=== PATIENT | male | born 1960 | race Hispanic/Latino ===

== ENCOUNTER 2020-04-07 02:25 | Inpatient (IN) | payer MEDICAID, OTHER, SELFPAY ==
[2020-04-07] MEDS ORDERED: Albuterol Sulfate 2.5 mg/0.5 ml Neb ONE (02:44)
[2020-04-07 02:56] LABS: Hemoglobin 14.6 g/dL (14.0-18.0); Mean Corpuscular HGB CONC 32.9 g/dL (32.0-36.0); Mean Corpuscular Hemoglobin 29.3 pg (27.0-31.0); Mean Corpuscular Volume 89.1 fL (78.0-98.0); Platelet Count 221 thou/uL (130-400); RBC Distribution Width 12.9 % (11.5-14.5); Red Blood Cell (RBC) Count 4.99 mill/uL (4.70-6.10); White Blood Cell (WBC) Count 21.9 thou/uL (4.8-10.8)
[2020-04-07 03:02] LABS: Actual Bicarbonate (HCO3a) 13.8 mEq/L (22-28); Analyzer IN Cardio ER; Base Excess (BEa) -10.6 mEq/L (-2.0 to +3.0); CO2 Tension 27.6 mmHg (35.0-45.0); Calcium, Ionized (arterial) 1.02 mmol/L (1.12-1.30); Carboxyhemoglobin (COHb) 0.9 gm% (0.0-3.0); Hemoglobin (Hb) 14.7 g/dL (14.0-18.0); O2 Tension (PaO2), arterial 65.7 mmHg (> 80.0); Potassium - ABG Lab 3.39 mmol/L (3.70-5.30); pH, Arterial 7.32 (7.35-7.45)
[2020-04-07 03:05] LABS: Puncture Site RRA
[2020-04-07 03:11] LABS: Band 10 % (5-11); Lymphocytes 7 % (21-51); MDiff Complete? YES; Monocytes 8 % (0-10); Neutrophil 74 % (42-75); Reactive Lymphocytes 1 % (0-10)
[2020-04-07 03:12] LABS: ALT (SGPT) 45 U/L (8-55); AST (SGOT) 62 U/L (5-34); Albumin 3.6 g/dL (3.4-4.8); Alkaline Phosphatase 262 U/L (40-110); Anion Gap 30 mmol/L (10-20); BUN (Urea Nitrogen) 11 mg/dL (8.4-25.7); Bilirubin, Total 0.6 mg/dL (0.2-1.2); Calc. Creatinine Clearance 0 mL/min (70-130); Calcium 8.3 mg/dL (7.8-10.44); Carbon Dioxide 13 mmol/L (23-31); Chloride 92 mmol/L (98-107); Globulin 4.7 g/dL (2.4-3.5); Glucose 348 mg/dL (80-115); Potassium 3.2 mmol/L (3.5-5.1); Protein, Total 8.3 g/dL (5.8-8.1); Sodium 132 mmol/L (136-145)
[2020-04-07] MEDS ORDERED: Azithromycin 500 MG VIAL ONE (03:22)
[2020-04-07] MEDS ORDERED: cefTRIAXone\\ROCEPHIN 2 GM VIAL ONE (03:22)
[2020-04-07 03:41] LABS: CKMB 9.2 ng/mL (0-6.6)
[2020-04-07] MEDS ORDERED: Lorazepam 2 MG/ML VIAL ONE (04:53)
[2020-04-07] MEDS ORDERED: methylPREDNISolone Sod Succ/PF 125 MG/2 ML VIAL ONE (05:05)
[2020-04-07] MEDS ORDERED: Succinylcholine 200 MG/10 ml SYRINGE FS ONE ×2 (05:05→05:16)
[2020-04-07] MEDS ORDERED: Vecuronium 10 MG VIAL ONE ×3 (05:21→17:30)
[2020-04-07] MEDS ORDERED: Midazolam HCl 5 mg/ml Vial ONE (05:21)
[2020-04-07 05:54] LABS: Actual Bicarbonate (HCO3a) 16.4 mEq/L (22-28); Analyzer IN Cardio ER; Base Excess (BEa) -14.7 mEq/L (-2.0 to +3.0); Calcium, Ionized (arterial) 0.99 mmol/L (1.12-1.30); Carboxyhemoglobin (COHb) 0.5 gm% (0.0-3.0); Hemoglobin (Hb) 13.5 g/dL (14.0-18.0); Potassium - ABG Lab 4.44 mmol/L (3.70-5.30)
[2020-04-07 05:55] LABS: CO2 Tension 62.3 mmHg (35.0-45.0); pH, Arterial 7.04 (7.35-7.45)
[2020-04-07 05:56] LABS: O2 Tension (PaO2), arterial 31.9 mmHg (> 80.0); Puncture Site RRA
[2020-04-07 05:58] LABS: ALV-art Gradient 603.225 mmHg (0-20)
[2020-04-07] MEDS ORDERED: fentaNYL Citrate/PF 2,000 MCG in Sodium Chloride 0.9% 60 ML IV SCH (06:00)
[2020-04-07 06:44] LABS: Bilirubin Negative (Negative); Clarity Clear (Clear); Glucose, Urine (Dipstick) 500 mg/dL (Negative); Ketone, Urine Trace mg/dL (Negative); Leukocyte Negative Leu/uL (Negative); Nitrite Negative (Negative); Protein, Urine (Dipstick) 70 mg/dL (Neg-Trace); Squamous Epithelial 0-3 HPF (0-3); Urobilinogen Normal mg/dL (Less than 2); pH, Urine 5.5 (5.0-9.0)
[2020-04-07 06:46] LABS: Bacteria/HPF 1+ HPF (None Seen); Specific Gravity, Urine 1.053 (1.002-1.036)
[2020-04-07] MEDS ORDERED: hydrALAZINE 20 MG/ML VIAL SLOW IVP PRN (07:00)
[2020-04-07] MEDS ORDERED: Potassium Chloride 20 MEQ in Premix Bag 1 BAG IVPB SCH ×2 (07:00→08:00)
[2020-04-07] MEDS ORDERED: Sodium Chloride 0.9% 1,000 ML IV SCH (07:00)
[2020-04-07] MEDS ORDERED: Labetalol HCl 100 MG/20 ML VIAL SLOW IVP PRN (07:01)
[2020-04-07 07:08] LABS: RBC/HPF 0-3 HPF (0-3)
[2020-04-07 07:09] LABS: WBC/HPF 0-3 HPF (0-3)
[2020-04-07] MEDS ORDERED: Water For Inject, Bacteriostat 30 ML ONE (07:09)
[2020-04-07 07:10] LABS: Blood, Urine 1+ (Negative)
[2020-04-07] MEDS ORDERED: Ventilator Sedation Protocol 1 EACH FS SCH (07:15)
[2020-04-07] MEDS ORDERED: DISCONTINUE PREVIOUS NARCOTIC PAIN MEDICATIONS AND BENZODIAZEPINES FS SCH (07:45)
[2020-04-07] MEDS ORDERED: Propofol BOLUS 1,000 MG/100 ML VIAL IV PRN (07:45)
[2020-04-07] MEDS ORDERED: Fentanyl BOLUS 250 ML IVPB PRN (07:45)
[2020-04-07] MEDS ORDERED: Morphine 2 MG/ML VIAL SLOW IVP PRN (07:45)
[2020-04-07] MEDS ORDERED: Electrolyte Replacement Protocol 1 EACH IVPB PRN (08:01)
[2020-04-07] MEDS ORDERED: Potassium Chloride 20 MEQ/100 ML PREMIX BAG ONE (08:06)
[2020-04-07] MEDS ORDERED: Dextrose 50% Abboject 50 ML SYRINGE SLOW IVP PRN (08:08)
[2020-04-07] MEDS ORDERED: Insulin Regular 300 UNITS/3 ML VIAL SC PRN (08:08)
[2020-04-07] MEDS ORDERED: Dextrose 5% in Water 1,000 ML IV PRN (08:08)
[2020-04-07] MEDS ORDERED: cefTRIAXone\\ROCEPHIN 1 GM VIAL ONE (08:08)
[2020-04-07] MEDS ORDERED: Dexamethasone 10 MG/ML VIAL ONE (08:10)
[2020-04-07 08:12] LABS: Troponin I 0.286 ng/mL (< 0.028)
[2020-04-07 08:19] LABS: Lactic Acid 12.5 mmol/L (0.5-2.2)
[2020-04-07] MEDS ORDERED: Norepinephrine 8 MG/0.9% NS 250 ML ONE ×2 (08:46→15:12)
[2020-04-07] MEDS ORDERED: Acetaminophen 650 MG/20.3 ML UDCUP PO PRN (08:55)
[2020-04-07 08:57] LABS: Actual Bicarbonate (HCO3a) 12.1 mEq/L (22-28); Analyzer IN Cardio ER; Base Excess (BEa) -21.6 mEq/L (-2.0 to +3.0); Calcium, Ionized (arterial) 1.01 mmol/L (1.12-1.30); Carboxyhemoglobin (COHb) 0.5 gm% (0.0-3.0); Hemoglobin (Hb) 14.4 g/dL (14.0-18.0)
[2020-04-07] MEDS ORDERED: Dexamethasone 4 mg/ml Vial SLOW IVP SCH (09:00)
[2020-04-07] MEDS ORDERED: Dexamethasone 20 MG/5 ML VIAL SLOW IVP SCH (09:00)
[2020-04-07] MEDS ORDERED: Sodium Chloride 0.9% 500 ML IV SCH (09:00)
[2020-04-07 09:03] LABS: Anion Gap 26 mmol/L (10-20); BUN (Urea Nitrogen) 12 mg/dL (8.4-25.7); Calc. Creatinine Clearance 59 mL/min (70-130); Calcium 7.1 mg/dL (7.8-10.44); Carbon Dioxide 14 mmol/L (23-31); Chloride 97 mmol/L (98-107); Glucose 460 mg/dL (80-115); Potassium 4.6 mmol/L (3.5-5.1); Sodium 132 mmol/L (136-145)
[2020-04-07] MEDS ORDERED: Sodium Bicarb 50 MEQ/50 ML Abboject 8.4% SYRINGE IVP SCH (09:15)
[2020-04-07] MEDS ORDERED: Sodium Bicarb 50 MEQ/50 ML Abboject 8.4% SYRINGE ONE (09:16)
[2020-04-07 09:25] LABS: CO2 Tension 64.1 mmHg (35.0-45.0); Puncture Site RRA; pH, Arterial 6.89 (7.35-7.45)
[2020-04-07 09:26] LABS: ALV-art Gradient 541.875 mmHg (0-20)
[2020-04-07] MEDS ORDERED: Sodium Bicarbonate 150 MEQ in Dextrose 5% in Water 1,000 ML IV SCH (09:30)
[2020-04-07] MEDS ORDERED: HUMULIN R 100 UNITS in Sodium Chloride 0.9% 100 ML IVPB SCH (09:30)
[2020-04-07] MEDS: Dexamethasone 4 mg/ml Vial SLOW IVP SCH (09:43)
[2020-04-07] MEDS ORDERED: Enoxaparin Sodium 40 MG/0.4 ML SYRINGE ONE (09:47)
[2020-04-07] MEDS: Enoxaparin Sodium 40 MG/0.4 ML SYRINGE SC SCH ×2 (09:49→23:10)
[2020-04-07] MEDS ORDERED: Norepinephrine 8 MG/0.9% NS 250 ML IVPB SCH (10:15)
[2020-04-07] MEDS ORDERED: Iopamidol-370 76% 500 ML 1 ML ONE (10:41)
[2020-04-07 11:08] LABS: Creatinine, Urine 90.66 mg/dL (63-166)
[2020-04-07 14:36] LABS: Anion Gap 28 mmol/L (10-20); BUN (Urea Nitrogen) 14 mg/dL (8.4-25.7); Calc. Creatinine Clearance 45 mL/min (70-130); Calcium 6.7 mg/dL (7.8-10.44); Carbon Dioxide 16 mmol/L (23-31); Chloride 96 mmol/L (98-107); Glucose 455 mg/dL (80-115); Magnesium 2.5 mg/dL (1.6-2.6); Sodium 135 mmol/L (136-145)
[2020-04-07 14:44] LABS: Phosphorus 8.5 mg/dL (2.3-4.7)
[2020-04-07 14:50] LABS: Troponin I 0.612 ng/mL (< 0.028)
[2020-04-07] MEDS ORDERED: Norepinephrine 4 MG/4 ML VIAL ONE ×3 (15:09→19:12)
[2020-04-07 16:28] LABS: SARS-CoV-2 NAA Rapid Test DETECTED (NotDetected)
[2020-04-07] MEDS: Vecuronium 10 MG VIAL IVP PRN (17:32)
[2020-04-07] MEDS: Sodium Bicarbonate 150 MEQ in Dextrose 5% in Water 1,000 ML IV SCH (18:10)
[2020-04-07] MEDS: Zinc Sulfate 220 MG CAP PO SCH (18:17)
[2020-04-07] MEDS: Cholecalciferol (Vitamin D3) 400 UNITS TAB PO SCH (18:17)
[2020-04-07] MEDS: Ascorbic Acid 500 mg Chewable Tablet PO SCH (18:17)
[2020-04-07 19:19] LABS: Lactic Acid 9.8 mmol/L (0.5-2.2)
[2020-04-07 19:26] LABS: Anion Gap 26 mmol/L (10-20); BUN (Urea Nitrogen) 16 mg/dL (8.4-25.7); Calc. Creatinine Clearance 38 mL/min (70-130); Calcium 6.4 mg/dL (7.8-10.44); Carbon Dioxide 16 mmol/L (23-31); Chloride 98 mmol/L (98-107); Glucose 335 mg/dL (80-115); Potassium 5.7 mmol/L (3.5-5.1); Sodium 134 mmol/L (136-145)
[2020-04-07] MEDS ORDERED: Calcium Gluconate 9.2 MEQ in Sodium Chloride 0.9% 100 ML IVPB SCH (21:00)
[2020-04-07] MEDS ORDERED: Aspirin Chewable 81 MG TAB PER TUBE SCH (21:00)
[2020-04-08] MEDS: Vecuronium 10 MG VIAL IVP PRN ×2 (00:01→07:42)
[2020-04-08] MEDS: Famotidine/PF 20 mg/2ml Vial SLOW IVP SCH ×2 (00:20→07:42)
[2020-04-08] MEDS: Dexamethasone 4 mg/ml Vial SLOW IVP SCH ×3 (00:20→21:30)
[2020-04-08] MEDS: MEROPENEM 1 GM/50 ML 1 GM in Premix Bag 1 BAG IVPB SCH ×3 (00:21→23:57)
[2020-04-08 00:56] LABS: Anion Gap 17 mmol/L (10-20); BUN (Urea Nitrogen) 23 mg/dL (8.4-25.7); Calc. Creatinine Clearance 39 mL/min (70-130); Calcium 6.5 mg/dL (7.8-10.44); Carbon Dioxide 28 mmol/L (23-31); Chloride 99 mmol/L (98-107); Glucose 117 mg/dL (80-115); Potassium 4.7 mmol/L (3.5-5.1); Sodium 139 mmol/L (136-145)
[2020-04-08] MEDS ORDERED: Fentanyl CADD 100 ML ONE ×2 (05:50→18:47)
[2020-04-08 07:22] LABS: Lactic Acid 3.7 mmol/L (0.5-2.2)
[2020-04-08 07:23] LABS: Albumin 2.8 g/dL (3.4-4.8); Alkaline Phosphatase 216 U/L (40-110); Anion Gap 20 mmol/L (10-20); BUN (Urea Nitrogen) 26 mg/dL (8.4-25.7); Bilirubin, Direct 1.9 mg/dL (0.1-0.3); Bilirubin, Total 2.4 mg/dL (0.2-1.2); CK (CPK) 730 U/L (30-200); Calc. Creatinine Clearance 34 mL/min (70-130); Calcium 6.9 mg/dL (7.8-10.44); Carbon Dioxide 26 mmol/L (23-31); Chloride 97 mmol/L (98-107); Glucose 228 mg/dL (80-115); Magnesium 2.3 mg/dL (1.6-2.6); Phosphorus 6.4 mg/dL (2.3-4.7); Potassium 4.8 mmol/L (3.5-5.1); Protein, Total 5.9 g/dL (5.8-8.1); Sodium 138 mmol/L (136-145)
[2020-04-08 07:36] LABS: Actual Bicarbonate (HCO3a) 25.7 mEq/L (22-28); Base Excess (BEa) -0.3 mEq/L (-2.0 to +3.0); CO2 Tension 47.6 mmHg (35.0-45.0); Calcium, Ionized (arterial) 0.91 mmol/L (1.12-1.30); Carboxyhemoglobin (COHb) 0.9 gm% (0.0-3.0); Hemoglobin (Hb) 13.8 g/dL (14.0-18.0); Potassium - ABG Lab 4.71 mmol/L (3.70-5.30); pH, Arterial 7.35 (7.35-7.45)
[2020-04-08] MEDS: Sodium Bicarbonate 150 MEQ in Dextrose 5% in Water 1,000 ML IV SCH ×2 (07:39→07:41)
[2020-04-08] MEDS: Ascorbic Acid 500 mg Chewable Tablet PO SCH (07:41)
[2020-04-08] MEDS: Zinc Sulfate 220 MG CAP PO SCH (07:41)
[2020-04-08] MEDS: Cholecalciferol (Vitamin D3) 400 UNITS TAB PO SCH (07:41)
[2020-04-08 07:42] LABS: O2 Tension (PaO2), arterial 47.2 mmHg (> 80.0); Puncture Site LRA
[2020-04-08] MEDS: Enoxaparin Sodium 40 MG/0.4 ML SYRINGE SC SCH (07:42)
[2020-04-08] MEDS ORDERED: Sterile Water 10 ML ONE (07:49)
[2020-04-08 07:55] LABS: CKMB 20.3 ng/mL (0-6.6)
[2020-04-08] MEDS ORDERED: cefTRIAXone\\ROCEPHIN 1 GM in Sodium Chloride 0.9% 100 ML IVPB SCH (08:00)
[2020-04-08 08:03] LABS: Hemoglobin 13.2 g/dL (14.0-18.0); Mean Corpuscular HGB CONC 32.1 g/dL (32.0-36.0); Mean Corpuscular Hemoglobin 28.5 pg (27.0-31.0); Mean Corpuscular Volume 88.9 fL (78.0-98.0); Mean Platelet Volume 14.2 fL (7.4-10.4); Platelet Count 33 thou/uL (130-400); RBC Distribution Width 13.7 % (11.5-14.5); Red Blood Cell (RBC) Count 4.64 mill/uL (4.70-6.10); White Blood Cell (WBC) Count 16.3 thou/uL (4.8-10.8)
[2020-04-08 08:08] LABS: #Lymphocytes 1.5 thou/uL (1.20-3.40); #Monocytes 1.1 thou/uL (0.11-0.59); #Neutrophils 14.1 thou/uL (1.40-6.50); %Basophils 0.1 % (0.0-1.0); %Eosinophils 0.2 % (0.0-10.0); %Lymphocytes 8.7 % (21.0-51.0); %Monocytes 6.4 % (0.0-10.0); %Neutrophils 84.5 % (42.0-75.0); Band 16 % (5-11); Bite Cells SLIGHT = 2-5 cells (100X) (0-1/hpf); Lymphocytes 5 % (21-51); MDiff Complete? YES; Monocytes 3 % (0-10); Neutrophil 74 % (42-75); Nucleated RBC 1 % (0); Platelet Morphology Comment Appears Decreased; Polychromasia SLIGHT = 2-3 cells (100X) (0-2/hpf); Reactive Lymphocytes 2 % (0-10); Schistocytes MODERATE= 6-15 cells (100X) (0-1/hpf)
[2020-04-08 08:31] LABS: Platelet Count 30 thou/uL (130-400)
[2020-04-08 08:40] LABS: Fibrinogen 172 mg/dL (253-463)
[2020-04-08 08:41] LABS: PTT 32.7 sec (22.9-36.1); Prothrombin Time 22.7 sec (12.0-14.7)
[2020-04-08] MEDS ORDERED: Ivermectin 3 MG TAB PO SCH (08:45)
[2020-04-08] MEDS ORDERED: Aspirin Chewable 81 MG TAB PER TUBE SCH (09:00)
[2020-04-08] MEDS ORDERED: Azithromycin 500 MG in Sodium Chloride 0.9% 250 ML 250 ML IVPB SCH (09:00)
[2020-04-08 09:07] LABS: D-Dimer Test Greater than 20.00 *mcg/mL (0.27-0.43)
[2020-04-08 10:02] LABS: ALT (SGPT) 4997 U/L (8-55)
[2020-04-08 10:20] LABS: AST (SGOT) Greater than 3500 U/L (5-34)
[2020-04-08] MEDS ORDERED: FLU VACC QS2020-21(6MOS UP)/PF 60 MCG/0.5 ML SYRINGE IM ONE (11:30)
[2020-04-08 12:09] LABS: FSP-Qualitative ABNORMAL (Normal); FSP-Semiquantitative >320 mcg/mL (Less than 5)
[2020-04-08] MEDS: Norepinephrine 8 MG/0.9% NS 250 ML IVPB PRN (14:18)
[2020-04-08 15:43] LABS: Fibrinogen 211 mg/dL (253-463); PTT 29.1 sec (22.9-36.1)
[2020-04-08 15:44] LABS: INR-International Normal Ratio 1.8; Prothrombin Time 21.3 sec (12.0-14.7)
[2020-04-08 15:55] LABS: Anion Gap 19 mmol/L (10-20); BUN (Urea Nitrogen) 36 mg/dL (8.4-25.7); Calc. Creatinine Clearance 25 mL/min (70-130); Calcium 6.4 mg/dL (7.8-10.44); Carbon Dioxide 28 mmol/L (23-31); Chloride 96 mmol/L (98-107); Glucose 180 mg/dL (80-115); Potassium 4.1 mmol/L (3.5-5.1); Sodium 139 mmol/L (136-145)
[2020-04-08 16:00] LABS: Band 32 % (5-11); Hemoglobin 13.3 g/dL (14.0-18.0); Lymphocytes 4 % (21-51); MDiff Complete? YES; Mean Corpuscular Hemoglobin 29.3 pg (27.0-31.0); Mean Corpuscular Volume 88.8 fL (78.0-98.0); Mean Platelet Volume 16.1 fL (7.4-10.4); Monocytes 3 % (0-10); Neutrophil 57 % (42-75); Nucleated RBC 6 % (0); Platelet Count 32 thou/uL (130-400); Platelet Morphology Comment Appears Decreased; Polychromasia MODERATE = 3-4 cells (100X) (0-2/hpf); RBC Distribution Width 13.6 % (11.5-14.5); Reactive Lymphocytes 4 % (0-10); Red Blood Cell (RBC) Count 4.54 mill/uL (4.70-6.10); Schistocytes SLIGHT = 2-5 cells (100X) (0-1/hpf); Target Cells SLIGHT = 2-5 cells (100X) (0-1/hpf); Tear Drops SLIGHT = 2-5 cells (100X) (0-1/hpf); White Blood Cell (WBC) Count 16.5 thou/uL (4.8-10.8)
[2020-04-08] MEDS ORDERED: Calcium Chloride 13.6 MEQ in Sodium Chloride 0.9% 100 ML IVPB SCH (16:00)
[2020-04-08] MEDS: Lorazepam 2 MG/ML VIAL SLOW IVP PRN ×2 (16:01→19:23)
[2020-04-08 16:07] LABS: D-Dimer Test Greater than 20.00 *mcg/mL (0.27-0.43)
[2020-04-08] MEDS ORDERED: Ergocalciferol 1.25 MG(50,000 UNITS) CAP PO SCH (16:15)
[2020-04-08 16:31] LABS: FSP-Qualitative ABNORMAL (Normal); FSP-Semiquantitative >320 mcg/mL (Less than 5)
[2020-04-08 16:32] LABS: Platelet Count 32 thou/uL (130-400)
[2020-04-08] MEDS ORDERED: Insulin Regular 300 UNITS/3 ML VIAL SC PRN ×2 (17:20)
[2020-04-08] MEDS: Mometasone 200 MCG/Formoterol 5 MCG 120 PUFF INHALER INH SCH (18:37)
[2020-04-08] MEDS: Propofol 1,000 MG/100 ML VIAL IV PRN (19:22)
[2020-04-08] MEDS: Insulin Regular 300 UNITS/3 ML VIAL SC PRN (21:30)
[2020-04-09] MEDS: Vecuronium 10 MG VIAL IVP PRN ×2 (00:02→16:00)
[2020-04-09] MEDS: Insulin Regular 300 UNITS/3 ML VIAL SC PRN ×6 (00:25→20:25)
[2020-04-09] MEDS: Lorazepam 2 MG/ML VIAL SLOW IVP PRN ×3 (01:11→16:00)
[2020-04-09] MEDS: Sodium Bicarbonate 50 MEQ in Sodium Chloride 0.45% 1,000 ML IV SCH ×2 (02:08→18:56)
[2020-04-09] MEDS: Propofol 1,000 MG/100 ML VIAL IV PRN (03:17)
[2020-04-09 03:58] LABS: Fibrinogen 214 mg/dL (253-463)
[2020-04-09 03:59] LABS: INR-International Normal Ratio 1.6; PTT 28.1 sec (22.9-36.1); Prothrombin Time 19.7 sec (12.0-14.7)
[2020-04-09 04:07] LABS: FSP-Qualitative ABNORMAL (Normal)
[2020-04-09 04:08] LABS: FSP-Semiquantitative >320 mcg/mL (Less than 5)
[2020-04-09 04:17] LABS: ALT (SGPT) 3072 U/L (8-55); AST (SGOT) 2924 U/L (5-34); Albumin 2.4 g/dL (3.4-4.8); Alkaline Phosphatase 240 U/L (40-110); Anion Gap 24 mmol/L (10-20); BUN (Urea Nitrogen) 52 mg/dL (8.4-25.7); Bilirubin, Total 2.5 mg/dL (0.2-1.2); Calc. Creatinine Clearance 20 mL/min (70-130); Calcium 6.4 mg/dL (7.8-10.44); Carbon Dioxide 24 mmol/L (23-31); Chloride 94 mmol/L (98-107); Glucose 213 mg/dL (80-115); Potassium 4.7 mmol/L (3.5-5.1); Protein, Total 5.4 g/dL (5.8-8.1); Sodium 137 mmol/L (136-145)
[2020-04-09 04:26] LABS: D-Dimer Test Greater than 20.00 *mcg/mL (0.27-0.43)
[2020-04-09 04:28] LABS: Magnesium 2.2 mg/dL (1.6-2.6); Phosphorus 8.6 mg/dL (2.3-4.7)
[2020-04-09 04:29] LABS: Hemoglobin 12.8 g/dL (14.0-18.0); Mean Corpuscular HGB CONC 33.2 g/dL (32.0-36.0); Mean Corpuscular Hemoglobin 28.9 pg (27.0-31.0); Mean Corpuscular Volume 87.1 fL (78.0-98.0); RBC Distribution Width 13.6 % (11.5-14.5); Red Blood Cell (RBC) Count 4.43 mill/uL (4.70-6.10)
[2020-04-09 04:52] LABS: Platelet Count 37 thou/uL (130-400)
[2020-04-09 05:05] LABS: Band 16 % (5-11); Lymphocytes 2 % (21-51); MDiff Complete? YES; Mean Platelet Volume 13.4 fL (7.4-10.4); Monocytes 5 % (0-10); Neutrophil 77 % (42-75); Nucleated RBC 6 % (0); Platelet Count 37 thou/uL (130-400); Platelet Morphology Comment Appears Decreased; Schistocytes SLIGHT = 2-5 cells (100X) (0-1/hpf); White Blood Cell (WBC) Count 17.2 thou/uL (4.8-10.8)
[2020-04-09] MEDS ORDERED: Fentanyl CADD 100 ML ONE ×2 (07:18→20:38)
[2020-04-09] MEDS: Mometasone 200 MCG/Formoterol 5 MCG 120 PUFF INHALER INH SCH ×2 (07:27→18:26)
[2020-04-09] MEDS: Dexamethasone 4 mg/ml Vial SLOW IVP SCH ×2 (09:44→20:26)
[2020-04-09] MEDS: Cholecalciferol (Vitamin D3) 400 UNITS TAB PO SCH (09:44)
[2020-04-09] MEDS: Famotidine/PF 20 mg/2ml Vial SLOW IVP SCH (09:44)
[2020-04-09] MEDS: Zinc Sulfate 220 MG CAP PO SCH (09:45)
[2020-04-09] MEDS: Ascorbic Acid 500 mg Chewable Tablet PO SCH (09:45)
[2020-04-09 10:27] LABS: Reticulocyte Count 1.1 % (0.5-1.5)
[2020-04-09] MEDS: MEROPENEM 1 GM/50 ML 1 GM in Premix Bag 1 BAG IVPB SCH (13:18)
[2020-04-09 15:27] LABS: Hemoglobin 12.9 g/dL (14.0-18.0); Platelet Count 47 thou/uL (130-400)
[2020-04-09] MEDS ORDERED: Sterile Water 10 ML ONE (15:40)
[2020-04-09 15:45] LABS: Anion Gap 25 mmol/L (10-20); BUN (Urea Nitrogen) 68 mg/dL (8.4-25.7); Calc. Creatinine Clearance 17 mL/min (70-130); Carbon Dioxide 24 mmol/L (23-31); Chloride 92 mmol/L (98-107); Glucose 250 mg/dL (80-115); Potassium 4.6 mmol/L (3.5-5.1); Sodium 136 mmol/L (136-145)
[2020-04-09 15:53] LABS: Calcium 5.7 mg/dL (7.8-10.44)
[2020-04-09] MEDS ORDERED: Calcium Chloride 13.6 MEQ in Sodium Chloride 0.9% 100 ML IVPB SCH (17:00)
[2020-04-09] MEDS: Norepinephrine 8 MG/0.9% NS 250 ML IVPB PRN (18:38)
[2020-04-10] MEDS: MEROPENEM 1 GM/50 ML 1 GM in Premix Bag 1 BAG IVPB SCH ×2 (00:23→10:56)
[2020-04-10] MEDS: Insulin Regular 300 UNITS/3 ML VIAL SC PRN ×6 (00:28→20:46)
[2020-04-10] MEDS: Propofol 1,000 MG/100 ML VIAL IV PRN ×3 (02:15→21:31)
[2020-04-10 04:56] LABS: Hemoglobin 12.4 g/dL (14.0-18.0); Mean Corpuscular HGB CONC 35.3 g/dL (32.0-36.0); Mean Corpuscular Hemoglobin 30.7 pg (27.0-31.0); Mean Corpuscular Volume 87.2 fL (78.0-98.0); Mean Platelet Volume 11.8 fL (7.4-10.4); Platelet Count 45 thou/uL (130-400); Red Blood Cell (RBC) Count 4.02 mill/uL (4.70-6.10); White Blood Cell (WBC) Count 18.3 thou/uL (4.8-10.8)
[2020-04-10 04:57] LABS: Band 13 % (5-11); Lymphocytes 6 % (21-51); MDiff Complete? YES; Metamyelocyte 2 % (0-0); Monocytes 7 % (0-10); Neutrophil 72 % (42-75); Nucleated RBC 13 % (0); Target Cells SLIGHT = 2-5 cells (100X) (0-1/hpf)
[2020-04-10 04:59] LABS: Anion Gap 23 mmol/L (10-20); BUN (Urea Nitrogen) 82 mg/dL (8.4-25.7); Calc. Creatinine Clearance 15 mL/min (70-130); Carbon Dioxide 25 mmol/L (23-31); Chloride 93 mmol/L (98-107); Glucose 220 mg/dL (80-115); Potassium 4.2 mmol/L (3.5-5.1); Sodium 137 mmol/L (136-145)
[2020-04-10 05:03] LABS: Lactic Acid 2.5 mmol/L (0.5-2.2)
[2020-04-10 05:04] LABS: Calcium 5.6 mg/dL (7.8-10.44)
[2020-04-10 05:11] LABS: ALT (SGPT) 1999 U/L (8-55); AST (SGOT) 801 U/L (5-34); Albumin 2.1 g/dL (3.4-4.8); Alkaline Phosphatase 245 U/L (40-110); Bilirubin, Direct 2.8 mg/dL (0.1-0.3); Bilirubin, Total 3.3 mg/dL (0.2-1.2)
[2020-04-10 05:23] LABS: Fibrinogen 192 mg/dL (253-463); Prothrombin Time 23.2 sec (12.0-14.7)
[2020-04-10 05:40] LABS: D-Dimer Test Greater than 20.00 *mcg/mL (0.27-0.43)
[2020-04-10] MEDS ORDERED: Calcium Gluc 4.6 MEQ/10 ML (100 MG/ML) SLOW IVP SCH (06:00)
[2020-04-10 06:09] LABS: FSP-Qualitative ABNORMAL (Normal); FSP-Semiquantitative >320 mcg/mL (Less than 5)
[2020-04-10 06:10] LABS: Platelet Count 45 thou/uL (130-400)
[2020-04-10] MEDS ORDERED: Calcium Chloride 13.6 MEQ in Sodium Chloride 0.9% 100 ML IVPB SCH (07:00)
[2020-04-10] MEDS: Mometasone 200 MCG/Formoterol 5 MCG 120 PUFF INHALER INH SCH ×2 (07:12→18:32)
[2020-04-10] MEDS: Sodium Bicarbonate 50 MEQ in Sodium Chloride 0.45% 1,000 ML IV SCH ×2 (07:59→21:32)
[2020-04-10] MEDS: Ascorbic Acid 500 mg Chewable Tablet PO SCH (08:03)
[2020-04-10] MEDS: Dexamethasone 4 mg/ml Vial SLOW IVP SCH ×2 (08:03→20:45)
[2020-04-10] MEDS: Zinc Sulfate 220 MG CAP PO SCH (08:03)
[2020-04-10] MEDS: Famotidine/PF 20 mg/2ml Vial SLOW IVP SCH (08:03)
[2020-04-10] MEDS: Cholecalciferol (Vitamin D3) 400 UNITS TAB PO SCH (08:03)
[2020-04-10] MEDS ORDERED: Calcium Chloride 1 GM/10 ML Abboject SYRINGE IVP SCH (09:00)
[2020-04-10] MEDS ORDERED: Heparin 10,000 UNITS/ 10 ML VIAL ONE (09:46)
[2020-04-10] MEDS: Meropenem 500 MG in Sodium Chloride 0.9% 100 ML IVPB SCH ×2 (12:11→23:26)
[2020-04-10 12:36] LABS: HBSAB Concentration Less than 8.00 mIU/mL; HBSAg Index 0.17 S/CO (0-0.99); Hep B Core Total Ab Non-Reactive (NonReactive); Hep B Surf AB Non-Reactive (NonReactive); Hep B Surf Ag Non-Reactive S/CO (NonReactive); Hep C IgG Ab Non-Reactive (NonReactive); Hep C Index 0.15 S/CO (0-0.79)
[2020-04-10] MEDS: Vecuronium 10 MG VIAL IVP PRN ×2 (13:00→20:07)
[2020-04-10] MEDS: Lorazepam 2 MG/ML VIAL SLOW IVP PRN ×2 (13:00→23:26)
[2020-04-10 15:25] LABS: Hep B Surf Ag Non-Reactive S/CO (NonReactive)
[2020-04-10] MEDS ORDERED: Fentanyl CADD 100 ML ONE (16:42)
[2020-04-11] MEDS: Insulin Regular 300 UNITS/3 ML VIAL SC PRN ×3 (00:19→20:05)
[2020-04-11 04:16] LABS: Fibrinogen 200 mg/dL (253-463); INR-International Normal Ratio 2.7; PTT 33.3 sec (22.9-36.1); Prothrombin Time 28.9 sec (12.0-14.7)
[2020-04-11 04:31] LABS: Anion Gap 23 mmol/L (10-20); BUN (Urea Nitrogen) 86 mg/dL (8.4-25.7); Calc. Creatinine Clearance 15 mL/min (70-130); Carbon Dioxide 25 mmol/L (23-31); Chloride 92 mmol/L (98-107); Glucose 216 mg/dL (80-115); Potassium 4.6 mmol/L (3.5-5.1); Sodium 135 mmol/L (136-145)
[2020-04-11] MEDS: Lorazepam 2 MG/ML VIAL SLOW IVP PRN ×3 (04:34→22:06)
[2020-04-11 04:37] LABS: ALT (SGPT) 1559 U/L (8-55); AST (SGOT) 315 U/L (5-34); Albumin 2.5 g/dL (3.4-4.8); Alkaline Phosphatase 286 U/L (40-110); Bilirubin, Direct 4.6 mg/dL (0.1-0.3); Bilirubin, Total 5.8 mg/dL (0.2-1.2); Calcium 5.4 mg/dL (7.8-10.44); D-Dimer Test Greater than 20.00 *mcg/mL (0.27-0.43); Protein, Total 5.9 g/dL (5.8-8.1)
[2020-04-11 04:58] LABS: Hemoglobin 13.4 g/dL (14.0-18.0); Lymphocytes 11 % (21-51); MDiff Complete? YES; Mean Corpuscular HGB CONC 33.9 g/dL (32.0-36.0); Mean Corpuscular Hemoglobin 29.2 pg (27.0-31.0); Mean Corpuscular Volume 86.1 fL (78.0-98.0); Mean Platelet Volume 13.8 fL (7.4-10.4); Monocytes 2 % (0-10); Myelocyte 1 % (0-0); Neutrophil 86 % (42-75); Nucleated RBC 7 % (0); Platelet Count 60 thou/uL (130-400); Platelet Morphology Comment Appears Decreased; RBC Distribution Width 13.3 % (11.5-14.5); Red Blood Cell (RBC) Count 4.58 mill/uL (4.70-6.10); White Blood Cell (WBC) Count 19.6 thou/uL (4.8-10.8)
[2020-04-11 05:26] LABS: FSP-Qualitative ABNORMAL (Normal); FSP-Semiquantitative >320 mcg/mL (Less than 5)
[2020-04-11] MEDS: Propofol 1,000 MG/100 ML VIAL IV PRN ×3 (05:29→20:49)
[2020-04-11 05:35] LABS: Platelet Count 60 thou/uL (130-400)
[2020-04-11] MEDS: Mometasone 200 MCG/Formoterol 5 MCG 120 PUFF INHALER INH SCH ×2 (06:38→18:05)
[2020-04-11] MEDS ORDERED: SODIUM CHLORIDE 0.9% IVPB SCH (07:00)
[2020-04-11] MEDS ORDERED: CALCIUM CHLORIDE IVPB SCH (07:00)
[2020-04-11] MEDS: Cholecalciferol (Vitamin D3) 400 UNITS TAB PO SCH (08:24)
[2020-04-11] MEDS: Dexamethasone 4 mg/ml Vial SLOW IVP SCH ×2 (08:24→20:22)
[2020-04-11] MEDS: Ascorbic Acid 500 mg Chewable Tablet PO SCH (08:25)
[2020-04-11] MEDS: Famotidine 20 MG TAB PO SCH (08:25)
[2020-04-11] MEDS: Zinc Sulfate 220 MG CAP PO SCH (08:25)
[2020-04-11] MEDS ORDERED: Heparin 10,000 UNITS/ 10 ML VIAL ONE (09:48)
[2020-04-11] MEDS ORDERED: Albumin 25% 25 GM/100 ML BOT IVPB SCH (11:00)
[2020-04-11] MEDS ORDERED: Fentanyl CADD 100 ML ONE (12:19)
[2020-04-11] MEDS: Meropenem 500 MG in Sodium Chloride 0.9% 100 ML IVPB SCH (14:02)
[2020-04-11] MEDS: Vecuronium 10 MG VIAL IVP PRN (21:52)
[2020-04-12] MEDS: Propofol 1,000 MG/100 ML VIAL IV PRN ×3 (02:10→18:43)
[2020-04-12] MEDS: Insulin Regular 300 UNITS/3 ML VIAL SC PRN ×3 (05:08→09:40)
[2020-04-12 05:21] LABS: Hemoglobin 12.2 g/dL (14.0-18.0); MDiff Complete? YES; Mean Corpuscular HGB CONC 34.3 g/dL (32.0-36.0); Mean Corpuscular Hemoglobin 30.4 pg (27.0-31.0); Mean Corpuscular Volume 88.7 fL (78.0-98.0); Mean Platelet Volume 11.6 fL (7.4-10.4); Metamyelocyte 1 % (0-0); Monocytes 5 % (0-10); Neutrophil 94 % (42-75); Nucleated RBC 2 % (0); Platelet Count 79 thou/uL (130-400); Platelet Morphology Comment Appears Decreased; RBC Distribution Width 13.5 % (11.5-14.5); White Blood Cell (WBC) Count 20.5 thou/uL (4.8-10.8)
[2020-04-12 05:22] LABS: Anion Gap 18 mmol/L (10-20); BUN (Urea Nitrogen) 91 mg/dL (8.4-25.7); Calc. Creatinine Clearance 17 mL/min (70-130); Carbon Dioxide 27 mmol/L (23-31); Chloride 94 mmol/L (98-107); Glucose 282 mg/dL (80-115); Potassium 5.7 mmol/L (3.5-5.1); Sodium 133 mmol/L (136-145)
[2020-04-12 05:24] LABS: Calcium 5.6 mg/dL (7.8-10.44)
[2020-04-12] MEDS ORDERED: Fentanyl CADD 100 ML ONE (05:39)
[2020-04-12 06:41] LABS: ALT (SGPT) 842 U/L (8-55); AST (SGOT) 140 U/L (5-34); Alkaline Phosphatase 246 U/L (40-110); Bilirubin, Direct 2.6 mg/dL (0.1-0.3); Bilirubin, Total 3.2 mg/dL (0.2-1.2); Magnesium 2.9 mg/dL (1.6-2.6)
[2020-04-12] MEDS: Mometasone 200 MCG/Formoterol 5 MCG 120 PUFF INHALER INH SCH ×2 (06:42→18:21)
[2020-04-12] MEDS ORDERED: Calcium Chloride 27.2 MEQ in Sodium Chloride 0.9% 250 ML 250 ML IVPB SCH (07:15)
[2020-04-12] MEDS ORDERED: Vancomycin HCl 0.5 GM in Sodium Chloride 0.9% 250 ML 250 ML IVPB SCH (08:00)
[2020-04-12] MEDS ORDERED: HOLD VANCOMYCIN FOR LEVEL >20 FS SCH (08:00)
[2020-04-12] MEDS ORDERED: Vancomycin HCl 750 MG in Sodium Chloride 0.9% 250 ML 250 ML IVPB SCH (08:00)
[2020-04-12] MEDS ORDERED: VANCOMYCIN 1.25 GM/250 ML BAG 1.25 GM in Premix Bag 1 BAG IVPB SCH (08:00)
[2020-04-12] MEDS ORDERED: Vancomycin 1 GM in Premix Bag 1 BAG IVPB SCH (08:00)
[2020-04-12] MEDS ORDERED: Vancomycin 1.5 GRAM/300 ML BAG 1.5 GM in Premix Bag 1 BAG IVPB SCH (08:00)
[2020-04-12] MEDS ORDERED: VANCOMYCIN 1.75 GM/350 ML BAG 1.75 GM in Premix Bag 1 BAG IVPB SCH (08:15)
[2020-04-12] MEDS: Dexamethasone 4 mg/ml Vial SLOW IVP SCH ×2 (09:16→20:10)
[2020-04-12] MEDS: Ascorbic Acid 500 mg Chewable Tablet PO SCH (09:16)
[2020-04-12] MEDS: Cholecalciferol (Vitamin D3) 400 UNITS TAB PO SCH (09:16)
[2020-04-12] MEDS: Famotidine 20 MG TAB PO SCH (09:16)
[2020-04-12] MEDS ORDERED: Heparin 10,000 UNITS/ 10 ML VIAL ONE (09:49)
[2020-04-12] MEDS ORDERED: Ergocalciferol 1.25 MG(50,000 UNITS) CAP PO SCH (11:45)
[2020-04-12] MEDS: Meropenem 500 MG in Sodium Chloride 0.9% 100 ML IVPB SCH ×2 (12:30)
[2020-04-13] MEDS: Propofol 1,000 MG/100 ML VIAL IV PRN ×4 (00:02→23:24)
[2020-04-13] MEDS: Insulin Regular 300 UNITS/3 ML VIAL SC PRN ×7 (00:15→23:30)
[2020-04-13] MEDS: Meropenem 500 MG in Sodium Chloride 0.9% 100 ML IVPB SCH ×3 (00:52→23:20)
[2020-04-13] MEDS ORDERED: Fentanyl CADD 100 ML ONE ×2 (01:06→20:16)
[2020-04-13 04:53] LABS: Anion Gap 23 mmol/L (10-20); BUN (Urea Nitrogen) 83 mg/dL (8.4-25.7); BUN/Creatinine Ratio 13.41; Calc. Creatinine Clearance 20 mL/min (70-130); Calcium 6.1 mg/dL (7.8-10.44); Carbon Dioxide 24 mmol/L (23-31); Chloride 93 mmol/L (98-107); Glucose 260 mg/dL (80-115); Potassium 6.1 mmol/L (3.5-5.1); Sodium 134 mmol/L (136-145)
[2020-04-13 04:59] LABS: Band 8 % (5-11); Hypochromia SLIGHT = 6-15 cells (100X) (0-5/hpf); Lymphocytes 7 % (21-51); MDiff Complete? YES; Mean Corpuscular HGB CONC 32.7 g/dL (32.0-36.0); Mean Corpuscular Hemoglobin 29.2 pg (27.0-31.0); Mean Corpuscular Volume 89.5 fL (78.0-98.0); Mean Platelet Volume 7.3 fL (7.4-10.4); Monocytes 8 % (0-10); Neutrophil 77 % (42-75); Nucleated RBC 1 % (0); Platelet Count 103 thou/uL (130-400); Platelet Morphology Comment Appears Decreased; RBC Distribution Width 14.5 % (11.5-14.5); Red Blood Cell (RBC) Count 4.45 mill/uL (4.70-6.10); White Blood Cell (WBC) Count 31.8 thou/uL (4.8-10.8)
[2020-04-13 05:03] LABS: Phosphorus 12.2 mg/dL (2.3-4.7)
[2020-04-13] MEDS: Mometasone 200 MCG/Formoterol 5 MCG 120 PUFF INHALER INH SCH ×2 (07:26→18:07)
[2020-04-13] MEDS ORDERED: Albumin 25% 25 GM/100 ML BOT IVPB SCH (08:48)
[2020-04-13] MEDS ORDERED: Dextrose 50% Abboject 50 ML SYRINGE SLOW IVP SCH (08:49)
[2020-04-13] MEDS ORDERED: Insulin Regular 300 UNITS/3 ML VIAL IVP SCH (09:00)
[2020-04-13] MEDS ORDERED: SODIUM CHLORIDE 0.9% IVPB SCH (09:00)
[2020-04-13] MEDS ORDERED: CALCIUM CHLORIDE IVPB SCH (09:00)
[2020-04-13] MEDS ORDERED: Heparin 10,000 UNITS/ 10 ML VIAL ONE (09:43)
[2020-04-13] MEDS: Cholecalciferol (Vitamin D3) 400 UNITS TAB PO SCH (09:44)
[2020-04-13] MEDS: Sevelamer Carbonate 800 MG TAB PER TUBE SCH ×2 (09:44→12:44)
[2020-04-13] MEDS: Dexamethasone 4 mg/ml Vial SLOW IVP SCH ×2 (09:44→20:06)
[2020-04-13] MEDS: Famotidine 20 MG TAB PO SCH (09:45)
[2020-04-13] MEDS: Vecuronium 10 MG VIAL IVP PRN ×2 (12:44→23:24)
[2020-04-13 14:07] LABS: Vancomycin, Random 13.7 ug/mL (See Comment)
[2020-04-13] MEDS: Lorazepam 2 MG/ML VIAL SLOW IVP PRN (17:14)
[2020-04-14] MEDS: Vecuronium 10 MG VIAL IVP PRN ×2 (00:03→16:08)
[2020-04-14] MEDS: Lorazepam 2 MG/ML VIAL SLOW IVP PRN ×2 (00:08→06:30)
[2020-04-14] MEDS: Norepinephrine 8 MG/0.9% NS 250 ML IVPB PRN (02:04)
[2020-04-14 04:31] LABS: Albumin 2.7 g/dL (3.4-4.8); Anion Gap 23 mmol/L (10-20); BUN (Urea Nitrogen) 93 mg/dL (8.4-25.7); Calc. Creatinine Clearance 22 mL/min (70-130); Carbon Dioxide 22 mmol/L (23-31); Chloride 95 mmol/L (98-107); Glucose 299 mg/dL (80-115); Potassium 6.5 mmol/L (3.5-5.1); Sodium 133 mmol/L (136-145); Vancomycin, Random 10.4 ug/mL (See Comment)
[2020-04-14 04:32] LABS: ALT (SGPT) 350 U/L (8-55); AST (SGOT) 68 U/L (5-34); Albumin 2.7 g/dL (3.4-4.8); Alkaline Phosphatase 216 U/L (40-110); Bilirubin, Direct 1.6 mg/dL (0.1-0.3); Bilirubin, Total 2.1 mg/dL (0.2-1.2); Lipase 295 U/L (8-78); Protein, Total 5.8 g/dL (5.8-8.1)
[2020-04-14 04:36] LABS: Band 9 % (5-11); Hemoglobin 11.3 g/dL (14.0-18.0); Lymphocytes 4 % (21-51); MDiff Complete? YES; Mean Corpuscular Hemoglobin 29.3 pg (27.0-31.0); Mean Corpuscular Volume 88.7 fL (78.0-98.0); Mean Platelet Volume 11.6 fL (7.4-10.4); Metamyelocyte 2 % (0-0); Monocytes 5 % (0-10); Neutrophil 80 % (42-75); Nucleated RBC 1 % (0); Platelet Count 102 thou/uL (130-400); Platelet Morphology Comment Appears Decreased; RBC Distribution Width 14.7 % (11.5-14.5); Red Blood Cell (RBC) Count 3.86 mill/uL (4.70-6.10); White Blood Cell (WBC) Count 27.2 thou/uL (4.8-10.8)
[2020-04-14 04:37] LABS: Phosphorus 11.6 mg/dL (2.3-4.7)
[2020-04-14] MEDS ORDERED: Dextrose 50% Abboject 50 ML SYRINGE SLOW IVP SCH (05:15)
[2020-04-14] MEDS ORDERED: Insulin Regular 300 UNITS/3 ML VIAL IVP SCH (05:15)
[2020-04-14] MEDS ORDERED: Vancomycin 1 GM in Premix Bag 1 BAG IVPB SCH (05:30)
[2020-04-14 06:04] LABS: Potassium 6.4 mmol/L (3.5-5.1)
[2020-04-14] MEDS ORDERED: Calcium Gluc 4.6 MEQ/10 ML (100 MG/ML) SLOW IVP SCH (06:30)
[2020-04-14] MEDS: Mometasone 200 MCG/Formoterol 5 MCG 120 PUFF INHALER INH SCH ×2 (07:13→18:13)
[2020-04-14] MEDS: Sevelamer Carbonate 800 MG TAB PER TUBE SCH ×3 (09:42→12:09)
[2020-04-14] MEDS: Calcium Carbonate 500 MG ChewTAB PO SCH ×3 (09:42→20:37)
[2020-04-14] MEDS: Dexamethasone 4 mg/ml Vial SLOW IVP SCH ×2 (09:42→20:35)
[2020-04-14] MEDS: Cholecalciferol (Vitamin D3) 400 UNITS TAB PO SCH (09:43)
[2020-04-14] MEDS: Meropenem 500 MG in Sodium Chloride 0.9% 100 ML IVPB SCH ×2 (11:20→23:40)
[2020-04-14] MEDS: Insulin Regular 300 UNITS/3 ML VIAL SC PRN ×4 (12:40→23:55)
[2020-04-14] MEDS: Propofol 1,000 MG/100 ML VIAL IV PRN ×2 (13:18→20:37)
[2020-04-14] MEDS: Enoxaparin Sodium 40 MG/0.4 ML SYRINGE SC SCH (20:41)
[2020-04-14] MEDS ORDERED: Fentanyl CADD 100 ML ONE (23:18)
[2020-04-15] MEDS: Lorazepam 2 MG/ML VIAL SLOW IVP PRN ×3 (02:42→22:13)
[2020-04-15] MEDS: Propofol 1,000 MG/100 ML VIAL IV PRN ×4 (03:03→19:12)
[2020-04-15] MEDS: Insulin Regular 300 UNITS/3 ML VIAL SC PRN ×3 (03:50→21:38)
[2020-04-15 05:30] LABS: Band 7 % (5-11); Hemoglobin 11.3 g/dL (14.0-18.0); Hypochromia SLIGHT = 6-15 cells (100X) (0-5/hpf); Lymphocytes 2 % (21-51); MDiff Complete? YES; Mean Corpuscular HGB CONC 32.5 g/dL (32.0-36.0); Mean Corpuscular Hemoglobin 28.8 pg (27.0-31.0); Mean Corpuscular Volume 88.6 fL (78.0-98.0); Mean Platelet Volume 11.9 fL (7.4-10.4); Monocytes 24 % (0-10); Neutrophil 67 % (42-75); Platelet Count 146 thou/uL (130-400); Platelet Morphology Comment Appears Adequate; Red Blood Cell (RBC) Count 3.91 mill/uL (4.70-6.10); White Blood Cell (WBC) Count 32.1 thou/uL (4.8-10.8)
[2020-04-15 05:31] LABS: Albumin 2.6 g/dL (3.4-4.8); Anion Gap 20 mmol/L (10-20); BUN (Urea Nitrogen) 99 mg/dL (8.4-25.7); BUN/Creatinine Ratio 17.46; Calc. Creatinine Clearance 20 mL/min (70-130); Carbon Dioxide 26 mmol/L (23-31); Chloride 93 mmol/L (98-107); Glucose 259 mg/dL (80-115); Potassium 5.8 mmol/L (3.5-5.1); Sodium 133 mmol/L (136-145)
[2020-04-15 05:35] LABS: Calcium 5.6 mg/dL (7.8-10.44)
[2020-04-15] MEDS ORDERED: Calcium Gluconate 9.2 MEQ in Sodium Chloride 0.9% 100 ML IVPB SCH (06:15)
[2020-04-15] MEDS: Mometasone 200 MCG/Formoterol 5 MCG 120 PUFF INHALER INH SCH ×2 (07:12→19:38)
[2020-04-15] MEDS: Dexamethasone 4 mg/ml Vial SLOW IVP SCH ×2 (08:36→20:52)
[2020-04-15] MEDS: Sevelamer Carbonate 800 MG TAB PER TUBE SCH ×4 (08:36→17:28)
[2020-04-15] MEDS: Cholecalciferol (Vitamin D3) 400 UNITS TAB PO SCH (08:36)
[2020-04-15] MEDS: Enoxaparin Sodium 40 MG/0.4 ML SYRINGE SC SCH ×2 (08:36→20:52)
[2020-04-15] MEDS: Calcium Carbonate 500 MG ChewTAB PO SCH ×3 (08:36→20:52)
[2020-04-15 09:21] LABS: Vancomycin, Random 17.2 ug/mL (See Comment)
[2020-04-15] MEDS ORDERED: Heparin 10,000 UNITS/ 10 ML VIAL ONE (10:12)
[2020-04-15] MEDS: Meropenem 500 MG in Sodium Chloride 0.9% 100 ML IVPB SCH (11:21)
[2020-04-15] MEDS ORDERED: Fentanyl CADD 100 ML ONE (22:04)
[2020-04-15] MEDS: Fentanyl CADD 100 ML IV SCH (22:13)
[2020-04-16] MEDS: Sevelamer Carbonate 800 MG TAB PER TUBE SCH ×4 (00:08→20:47)
[2020-04-16] MEDS: Meropenem 500 MG in Sodium Chloride 0.9% 100 ML IVPB SCH ×2 (00:09→11:06)
[2020-04-16] MEDS: Propofol 1,000 MG/100 ML VIAL IV PRN ×5 (00:10→22:37)
[2020-04-16] MEDS: Insulin Regular 300 UNITS/3 ML VIAL SC PRN ×4 (00:40→16:00)
[2020-04-16] MEDS: Lorazepam 2 MG/ML VIAL SLOW IVP PRN ×4 (02:41→14:38)
[2020-04-16 05:15] LABS: Albumin 2.4 g/dL (3.4-4.8); Anion Gap 22 mmol/L (10-20); BUN (Urea Nitrogen) 99 mg/dL (8.4-25.7); BUN/Creatinine Ratio 19.34; Calc. Creatinine Clearance 23 mL/min (70-130); Calcium 6.4 mg/dL (7.8-10.44); Carbon Dioxide 24 mmol/L (23-31); Chloride 93 mmol/L (98-107); Glucose 277 mg/dL (80-115); Potassium 5.5 mmol/L (3.5-5.1); Sodium 133 mmol/L (136-145)
[2020-04-16 05:18] LABS: Phosphorus 10.6 mg/dL (2.3-4.7)
[2020-04-16] MEDS: Mometasone 200 MCG/Formoterol 5 MCG 120 PUFF INHALER INH SCH ×2 (07:06→18:46)
[2020-04-16] MEDS: Dexamethasone 4 mg/ml Vial SLOW IVP SCH ×3 (07:35→20:45)
[2020-04-16] MEDS: Calcium Carbonate 500 MG ChewTAB PO SCH ×3 (07:35→20:45)
[2020-04-16] MEDS: Cholecalciferol (Vitamin D3) 400 UNITS TAB PO SCH (07:35)
[2020-04-16] MEDS: Enoxaparin Sodium 40 MG/0.4 ML SYRINGE SC SCH ×2 (07:35→20:46)
[2020-04-16 08:18] LABS: INR-International Normal Ratio 1.8; PTT 35.8 sec (22.9-36.1); Prothrombin Time 21.1 sec (12.0-14.7)
[2020-04-16 09:07] LABS: Hemoglobin 10.4 g/dL (14.0-18.0); Mean Corpuscular HGB CONC 33.2 g/dL (32.0-36.0); Mean Corpuscular Hemoglobin 29.3 pg (27.0-31.0); Mean Corpuscular Volume 88.4 fL (78.0-98.0); Mean Platelet Volume 10.9 fL (7.4-10.4); Platelet Count 159 thou/uL (130-400); RBC Distribution Width 14.9 % (11.5-14.5); Red Blood Cell (RBC) Count 3.55 mill/uL (4.70-6.10); White Blood Cell (WBC) Count 34.9 thou/uL (4.8-10.8)
[2020-04-16 09:15] LABS: Band 20 % (5-11); Bite Cells SLIGHT = 2-5 cells (100X) (0-1/hpf); MDiff Complete? YES; Metamyelocyte 1 % (0-0); Monocytes 5 % (0-10); Myelocyte 2 % (0-0); Neutrophil 70 % (42-75); Nucleated RBC 2 % (0); Platelet Morphology Comment Appears Adequate; Polychromasia SLIGHT = 2-3 cells (100X) (0-2/hpf); Reactive Lymphocytes 2 % (0-10); Schistocytes SLIGHT = 2-5 cells (100X) (0-1/hpf); Toxic Granulation SLIGHT
[2020-04-16] MEDS: Albumin 25% 25 GM/100 ML BOT IVPB SCH (11:06)
[2020-04-16] MEDS: Vecuronium 10 MG VIAL IVP PRN ×2 (15:00→22:37)
[2020-04-16] MEDS ORDERED: Heparin 10,000 UNITS/ 10 ML VIAL ONE (16:49)
[2020-04-16] MEDS ORDERED: Iopamidol-370 76% 500 ML 1 ML ONE (17:52)
[2020-04-16 21:25] LABS: Vancomycin, Random 14.6 ug/mL (See Comment)
[2020-04-16] MEDS ORDERED: Fentanyl CADD 100 ML ONE (21:45)
[2020-04-16] MEDS: Fentanyl CADD 100 ML IV SCH (21:48)
[2020-04-16] MEDS ORDERED: Sterile Water 10 ML ONE (22:29)
[2020-04-17] MEDS: Meropenem 500 MG in Sodium Chloride 0.9% 100 ML IVPB SCH ×3 (00:46→23:10)
[2020-04-17] MEDS ORDERED: Sterile Water 10 ML ONE (03:03)
[2020-04-17] MEDS: Vecuronium 10 MG VIAL IVP PRN (03:04)
[2020-04-17] MEDS: Sevelamer Carbonate 800 MG TAB PER TUBE SCH ×4 (03:33→20:53)
[2020-04-17 04:30] LABS: White Blood Cell (WBC) Count 44.8 thou/uL (4.8-10.8)
[2020-04-17 04:36] LABS: Anion Gap 22 mmol/L (10-20); BUN (Urea Nitrogen) 90 mg/dL (8.4-25.7); BUN/Creatinine Ratio 19.65; Calc. Creatinine Clearance 25 mL/min (70-130); Calcium 6.9 mg/dL (7.8-10.44); Carbon Dioxide 23 mmol/L (23-31); Chloride 92 mmol/L (98-107); Glucose 227 mg/dL (80-115); Phosphorus 7.8 mg/dL (2.3-4.7); Potassium 5.4 mmol/L (3.5-5.1); Sodium 132 mmol/L (136-145)
[2020-04-17 05:23] LABS: Anisocytosis SLIGHT = 6-15 cells (100X) (0-5/hpf); Band 21 % (5-11); Hemoglobin 10.4 g/dL (14.0-18.0); Lymphocytes 3 % (21-51); MDiff Complete? YES; Mean Corpuscular HGB CONC 31.8 g/dL (32.0-36.0); Mean Corpuscular Hemoglobin 28.2 pg (27.0-31.0); Mean Corpuscular Volume 88.7 fL (78.0-98.0); Mean Platelet Volume 11.2 fL (7.4-10.4); Monocytes 3 % (0-10); Neutrophil 73 % (42-75); Nucleated RBC 1 % (0); Platelet Count 195 thou/uL (130-400); RBC Distribution Width 15.4 % (11.5-14.5); Red Blood Cell (RBC) Count 3.68 mill/uL (4.70-6.10)
[2020-04-17 06:58] LABS: Actual Bicarbonate (HCO3a) 23.2 mEq/L (22-28); Base Excess (BEa) -4.8 mEq/L (-2.0 to +3.0); CO2 Tension 55.7 mmHg (35.0-45.0); Calcium, Ionized (arterial) 0.88 mmol/L (1.12-1.30); Hemoglobin (Hb) 12.5 g/dL (14.0-18.0); O2 Tension (PaO2), arterial 60.8 mmHg (> 80.0); Potassium - ABG Lab 5.38 mmol/L (3.70-5.30)
[2020-04-17] MEDS: Mometasone 200 MCG/Formoterol 5 MCG 120 PUFF INHALER INH SCH ×2 (07:14→18:04)
[2020-04-17 07:18] LABS: Puncture Site RBA; pH, Arterial 7.24 (7.35-7.45)
[2020-04-17 07:19] LABS: ALV-art Gradient 439.975 mmHg (0-20)
[2020-04-17] MEDS: Propofol 1,000 MG/100 ML VIAL IV PRN (07:27)
[2020-04-17] MEDS: Calcium Carbonate 500 MG ChewTAB PO SCH ×3 (08:32→20:50)
[2020-04-17] MEDS: Enoxaparin Sodium 40 MG/0.4 ML SYRINGE SC SCH ×2 (08:33→20:51)
[2020-04-17] MEDS: Dexamethasone 4 mg/ml Vial SLOW IVP SCH ×2 (08:33→20:50)
[2020-04-17] MEDS: Cholecalciferol (Vitamin D3) 400 UNITS TAB PO SCH (08:33)
[2020-04-17] MEDS ORDERED: Fentanyl CADD 100 ML IV SCH (08:45)
[2020-04-17] MEDS ORDERED: Morphine 2 MG/ML VIAL SLOW IVP PRN (08:45)
[2020-04-17] MEDS: Insulin Regular 300 UNITS/3 ML VIAL SC PRN ×4 (08:45→23:34)
[2020-04-17] MEDS ORDERED: Fentanyl BOLUS 250 ML IVPB PRN (08:46)
[2020-04-17] MEDS ORDERED: Albumin 25% 100 ML ONE ×2 (12:50→12:54)
[2020-04-17] MEDS: Albumin 25% 25 GM/100 ML BOT IVPB SCH (12:53)
[2020-04-17 13:51] VITALS: BMI 35.4
[2020-04-17] MEDS: Linezolid 600 MG in Premix Bag 1 BAG IVPB SCH ×2 (14:17→20:52)
[2020-04-17] MEDS ORDERED: Heparin 10,000 UNITS/ 10 ML VIAL ONE (16:50)
[2020-04-17] MEDS ORDERED: Fentanyl CADD 100 ML ONE (20:01)
[2020-04-17] MEDS ORDERED: hydrALAZINE 20 MG/ML VIAL SLOW IVP PRN (21:50)
[2020-04-17] MEDS: Lorazepam 2 MG/ML VIAL SLOW IVP PRN (23:11)
[2020-04-18] MEDS: Vecuronium 10 MG VIAL IVP PRN ×4 (02:08→16:43)
[2020-04-18] MEDS: Propofol 1,000 MG/100 ML VIAL IV PRN ×2 (02:08→09:58)
[2020-04-18 02:36] VITALS: BP 90/58
[2020-04-18] MEDS: Sevelamer Carbonate 800 MG TAB PER TUBE SCH ×3 (03:45→18:20)
[2020-04-18] MEDS: Insulin Regular 300 UNITS/3 ML VIAL SC PRN ×4 (03:45→11:52)
[2020-04-18 05:03] LABS: Anion Gap 24 mmol/L (10-20); BUN (Urea Nitrogen) 75 mg/dL (8.4-25.7); Calc. Creatinine Clearance 28 mL/min (70-130); Calcium 7.4 mg/dL (7.8-10.44); Carbon Dioxide 21 mmol/L (23-31); Chloride 93 mmol/L (98-107); Glucose 245 mg/dL (80-115); Phosphorus 8.8 mg/dL (2.3-4.7); Potassium 5.6 mmol/L (3.5-5.1); Sodium 132 mmol/L (136-145)
[2020-04-18 05:34] LABS: Band 24 % (5-11); Hemoglobin 9.8 g/dL (14.0-18.0); Lymphocytes 2 % (21-51); MDiff Complete? YES; Mean Corpuscular HGB CONC 32.2 g/dL (32.0-36.0); Mean Corpuscular Hemoglobin 28.8 pg (27.0-31.0); Mean Corpuscular Volume 89.4 fL (78.0-98.0); Mean Platelet Volume 11.1 fL (7.4-10.4); Monocytes 2 % (0-10); Neutrophil 72 % (42-75); Platelet Count 188 thou/uL (130-400); RBC Distribution Width 15.6 % (11.5-14.5); White Blood Cell (WBC) Count 39.4 thou/uL (4.8-10.8)
[2020-04-18] MEDS ORDERED: Calcium Chloride 13.6 MEQ in Sodium Chloride 0.9% 100 ML IVPB SCH (06:45)
[2020-04-18 07:11] LABS: Actual Bicarbonate (HCO3a) 22.4 mEq/L (22-28); Base Excess (BEa) -5.5 mEq/L (-2.0 to +3.0); CO2 Tension 54.5 mmHg (35.0-45.0); Calcium, Ionized (arterial) 0.92 mmol/L (1.12-1.30); Hemoglobin (Hb) 12.1 g/dL (14.0-18.0); O2 Tension (PaO2), arterial 61.6 mmHg (> 80.0); Potassium - ABG Lab 5.16 mmol/L (3.70-5.30)
[2020-04-18 07:25] LABS: Puncture Site RBA; pH, Arterial 7.23 (7.35-7.45)
[2020-04-18 07:27] LABS: ALV-art Gradient 333.725 mmHg (0-20)
[2020-04-18] MEDS: Mometasone 200 MCG/Formoterol 5 MCG 120 PUFF INHALER INH SCH (07:28)
[2020-04-18] MEDS: Enoxaparin Sodium 40 MG/0.4 ML SYRINGE SC SCH (07:31)
[2020-04-18] MEDS: Calcium Carbonate 500 MG ChewTAB PO SCH ×2 (07:31→18:20)
[2020-04-18] MEDS: Cholecalciferol (Vitamin D3) 400 UNITS TAB PO SCH (07:32)
[2020-04-18] MEDS: Lorazepam 2 MG/ML VIAL SLOW IVP PRN ×3 (07:32→16:43)
[2020-04-18] MEDS: Dexamethasone 4 mg/ml Vial SLOW IVP SCH (07:32)
[2020-04-18 08:05] LABS: Platelet Count 225 thou/uL (130-400)
[2020-04-18 08:08] LABS: Fibrinogen 625 mg/dL (253-463)
[2020-04-18 08:09] LABS: INR-International Normal Ratio 1.5; PTT 35.3 sec (22.9-36.1); Prothrombin Time 17.9 sec (12.0-14.7)
[2020-04-18 08:17] LABS: D-Dimer Test 16.76 *mcg/mL (0.27-0.43)
[2020-04-18] MEDS: Linezolid 600 MG in Premix Bag 1 BAG IVPB SCH (08:32)
[2020-04-18 08:39] LABS: FSP-Qualitative ABNORMAL (Normal); FSP-Semiquantitative >=40 & <80 mcg/mL (Less than 5)
[2020-04-18] MEDS: Meropenem 500 MG in Sodium Chloride 0.9% 100 ML IVPB SCH (11:52)
[2020-04-18] MEDS ORDERED: Dextrose 50% Abboject 50 ML SYRINGE IVP PRN (12:15)
[2020-04-18] MEDS ORDERED: Insulin Regular 300 UNITS/3 ML VIAL SC PRN (12:15)
[2020-04-18] MEDS ORDERED: Dextrose 5% in Water 1,000 ML IV PRN (12:15)
[2020-04-18] MEDS ORDERED: Micafungin 150 MG in Sodium Chloride 0.9% 100 ML IVPB SCH ×2 (13:15→14:00)
[2020-04-18] MEDS ORDERED: Fentanyl CADD 100 ML IV SCH (14:00)
[2020-04-18] MEDS ORDERED: Fentanyl BOLUS 250 ML IVPB PRN (14:00)
[2020-04-18] MEDS ORDERED: Acyclovir Sodium 350 MG in Sodium Chloride 0.9% 100 ML IVPB SCH (14:00)
[2020-04-18 17:06] VITALS: TEMP 97.1
[2020-04-18] MEDS ORDERED: DOPamine 400 MG/D5W 250 ML 250 ML ONE (17:14)
[2020-04-19] MEDS ORDERED: Ergocalciferol 1.25 MG(50,000 UNITS) CAP PO SCH (09:00)
== END 2020-04-18 17:25 | disposition expired | DRG 870 ==
LOC: ERS 02:25 → ERHOLD 03:42 → CCU 21:19
PROVIDERS: ADMIT Student in an Organized Health Care Education/Training Program; ATTEND Internal Medicine
PROC: XW13325 Transfusion of Convalescent Plasma (Nonautologous) into Peripheral Vein, Percutaneous Approach, New Technology Group 5 (ICD-10-PCS; principal; 2020-04-07)
PROC: 5A1955Z Respiratory Ventilation, Greater than 96 Consecutive Hours (ICD-10-PCS; 2020-04-07)
PROC: 3E033XZ Introduction of Vasopressor into Peripheral Vein, Percutaneous Approach (ICD-10-PCS; 2020-04-07)
PROC: 8E0ZXY6 Isolation (ICD-10-PCS; 2020-04-07)
PROC: 0BH17EZ Insertion of Endotracheal Airway into Trachea, Via Natural or Artificial Opening (ICD-10-PCS; 2020-04-07)
PROC: 0BJ08ZZ Inspection of Tracheobronchial Tree, Via Natural or Artificial Opening Endoscopic (ICD-10-PCS; 2020-04-09)
PROC: 5A1D70Z Performance of Urinary Filtration, Intermittent, Less than 6 Hours Per Day (ICD-10-PCS; 2020-04-10)
PROC: 06HY33Z Insertion of Infusion Device into Lower Vein, Percutaneous Approach (ICD-10-PCS; 2020-04-10)
DX: A41.89 Other specified sepsis (principal); U07.1 COVID-19; J80 Acute respiratory distress syndrome; J12.82 Pneumonia due to coronavirus disease 2019; R65.21 Severe sepsis with septic shock; N17.0 Acute kidney failure with tubular necrosis; I21.A1 Myocardial infarction type 2; K72.00 Acute and subacute hepatic failure without coma; D65 Disseminated intravascular coagulation [defibrination syndrome]; E87.1 Hypo-osmolality and hyponatremia; M62.82 Rhabdomyolysis; T85.628A Displacement of other specified internal prosthetic devices, implants and grafts, initial encounter; G93.40 Encephalopathy, unspecified; E87.2 Acidosis; Z51.5 Encounter for palliative care; Z79.899 Other long term (current) drug therapy; E78.5 Hyperlipidemia, unspecified; E78.00 Pure hypercholesterolemia, unspecified; N18.2 Chronic kidney disease, stage 2 (mild); I12.9 Hypertensive chronic kidney disease with stage 1 through stage 4 chronic kidney disease, or unspecified chronic kidney disease; E11.22 Type 2 diabetes mellitus with diabetic chronic kidney disease; E66.9 Obesity, unspecified; E11.65 Type 2 diabetes mellitus with hyperglycemia; E55.9 Vitamin D deficiency, unspecified; K76.89 Other specified diseases of liver; E87.6 Hypokalemia; E86.9 Volume depletion, unspecified; B00.9 Herpesviral infection, unspecified; D72.823 Leukemoid reaction; Y84.8 Other medical procedures as the cause of abnormal reaction of the patient, or of later complication, without mention of misadventure at the time of the procedure; Z68.34 Body mass index [BMI] 34.0-34.9, adult; Z78.1 Physical restraint status; Z79.82 Long term (current) use of aspirin; Z79.4 Long term (current) use of insulin; Z87.891 Personal history of nicotine dependence; Z88.0 Allergy status to penicillin
CPT/HCPCS: 0240U; 31500; 36415; 36416; 36430; 36556; 36600; 51702; 71045; 71275; 74177; 76705; 80048; 80053; 80069; 80076; 80202; 81001; 82010; 82306; 82550; 82553; 82570; 82728; 82805; 83605; 83690; 83735; 83880; 84100; 84145; 84156; 84300; 84484; 84540; 85007; 85025; 85027; 85046; 85049; 85060; 85300; 85362; 85379; 85384; 85610; 85730; 86140; 86704; 86706; 86803; 86850; 86900; 86901; 86905; 87040; 87086; 87103; 87340; 87449; 90935; 93005; 94002; 94003; 94660; 96365; 96366; 96367; 96375; 96376; G0257; J0360; J0456; J0696; J1100; J1642; J1644; J1650; J1815; J2001; J2020; J2060; J2185; J2250; J2704; J2930; J3010; J3370; J3411; J3480; J3490; J7050; J7070; J7611; P9017; P9045; P9047; Q9967; S0028